=== PATIENT | male | born 1950 | race Caucasian/White ===

== ENCOUNTER 2019-01-30 13:11 | Outpatient (CLI) | payer MEDICARE ==
[~2019-01-30 13:11] MED LIST: ALBUTEROL NEB 2.5 MG/3 ML INH ONE
== END 2019-01-30 13:12 | disposition home or self-care (01) ==
LOC: RT 13:11
PROVIDERS: ATTEND Family Medicine
DX: R06.09 Other forms of dyspnea (principal)
CPT/HCPCS: 94060; 94727; 94729

== ENCOUNTER 2019-05-26 13:09 | Outpatient (CLI) | payer MEDICARE ==
--- NOTE | 2019-05-27 13:59 | XRAY Report ---
Reason: PAIN OF LEFT SHOULDER JOINT, BILATERAL Procedure Date: 05/26/2019 Accession Number: [id number] / [id number] Procedure: XRS - Shoulder 3 View BILAT CPT Code: Final Report FULL RESULT: EXAM: BILATERAL SHOULDER RADIOGRAPHY EXAM DATE: 05/26/2019 01:33 PM. CLINICAL HISTORY: Pain of bilateral shoulder joints. COMPARISON: None. TECHNIQUE: 3 views each shoulder. FINDINGS: Bones: Normal. No fracture or bone lesion. Joints: The glenohumeral and acromioclavicular joints are normally aligned. Mild bilateral acromioclavicular and glenohumeral degenerative changes with joint space loss and osteophytosis. Soft tissues: The visualized hemithorax is unremarkable. No soft tissue swelling. Benign-appearing soft tissue calcifications adjacent to the proximal left humerus. IMPRESSION: Mild bilateral degenerative changes in the shoulders. RADIA
== END 2019-05-26 13:10 | disposition home or self-care (01) ==
LOC: DI.S 13:09
PROVIDERS: ATTEND Family Medicine
DX: M19.012 Primary osteoarthritis, left shoulder (principal); M19.011 Primary osteoarthritis, right shoulder

== ENCOUNTER 2019-08-12 09:06 | Outpatient (CLI) | payer MEDICARE ==
--- NOTE | 2019-08-12 23:26 | Ultrasound Report ---
Reason: AAA Procedure Date: 08/12/2019 Accession Number: [id number] / [id number] Procedure: US - Retroperitoneal Limited CPT Code: Final Report FULL RESULT: EXAM: AORTIC DOPPLER ULTRASOUND EXAM DATE: 08/12/2019 10:58 AM. CLINICAL HISTORY: Evaluate abdominal aortic aneurysm. COMPARISON: None. TECHNIQUE: Real-time sonographic imaging of retroperitoneal vascular structures, including color-flow, Doppler flow and spectral analysis was performed by the offset printing pressmen. Multiple customer service representative teacher static images were saved for review. FINDINGS: Aorta: The abdominal aorta was adequately visualized. Fusiform distal abdominal aortic aneurysm measuring 3.3 x 3.7 cm in the transverse dimension. Aorta: Proximal: Sagittal AP 2.4 cm. Mid: Transverse 2.0 x 1.6 cm. Distal: Transverse 3.3 x .7 cm. Caliber: WNL: No. Plaque visualized: Yes. Iliacs: Right Iliac: Transverse 0.6 x 0.8 cm. Left Iliac: Transverse 0.5 x 0.8 cm. Iliac Vessels: Atherosclerotic plaquing involving the common iliac arteries bilaterally without definite aneurysmal dilatation. Other: None. IMPRESSION: 1. Fusiform distal abdominal aortic aneurysm measuring 3.3 x 3.7 cm in the transverse dimension. No sonographic evidence of rupture. 2. Atherosclerotic plaquing involving the common iliac arteries bilaterally without definite aneurysmal dilatation. RADIA
== END 2019-08-12 09:07 | disposition home or self-care (01) ==
LOC: DI 09:06
PROVIDERS: ATTEND Family Medicine
DX: I71.4 Abdominal aortic aneurysm, without rupture (principal)
CPT/HCPCS: 76775

== ENCOUNTER 2022-08-14 13:01 | Outpatient (CLI) | payer MEDICARE ==
--- NOTE | 2022-08-14 16:58 | XRAY Report ---
PROCEDURE: Lumbar Spine 2 View INDICATIONS: LOW BACK PAIN TECHNIQUE: 2 views of the lumbar spine were acquired. COMPARISON: Ultrasound retroperitoneum, 08/12/2019. FINDINGS: Bones: 5 [id number] vertebrae are present. There is trace retrolisthesis of L4 on L5. No vert ebral body compression fractures. No suspicious bony lesions. Mild degenerative disc disease throug hout the lumbar spine. Moderate facet arthropathy at L4-L5 and L5-S1. Soft tissues: Overlying bowel gas pattern is normal. There is aneurysm involving the anterior wall o f the still abdominal aorta. Severe atherosclerotic calcifications. Possible right inguinal calculi in the superior. IMPRESSION: 1. Mild degenerative joint disease and moderate facet arthropathy. 2. Aneurysm of the distal abdominal aorta. 3. Severe atherosclerotic calcifications. 4. Possible right renal calculi. Reviewed by: Chelo Malave MD on 08/14/2022 4:57 PM PST Approved by: Chelo Malave MD on 08/14/2022 4:57 PM PST Station ID: [id number]
--- NOTE | 2022-08-14 17:10 | XRAY Report ---
PROCEDURE: Thoracic Spine 2 View INDICATIONS: LOW BACK PAIN TECHNIQUE: 2 views of the thoracic spine were acquired. COMPARISON: None. FINDINGS: Bones: No fractures or dislocations. No suspicious bony lesions. Mild degenerative disc disease thr oughout the thoracic spine. 12 pairs of ribs are noted, and appear intact where visualized. Soft tissues: No paravertebral stripe thickening. IMPRESSION: Mild degenerative disc disease. Reviewed by: Chelo Malave MD on 08/14/2022 5:08 PM PST Approved by: Chelo Malave MD on 08/14/2022 5:08 PM PST Station ID: [id number]
== END 2022-08-14 13:02 | disposition home or self-care (01) ==
LOC: DI.S 13:01
PROVIDERS: ATTEND Nurse Practitioner Family
DX: M47.816 Spondylosis without myelopathy or radiculopathy, lumbar region (principal); M47.817 Spondylosis without myelopathy or radiculopathy, lumbosacral region; M51.36 Other intervertebral disc degeneration, lumbar region; M51.37 Other intervertebral disc degeneration, lumbosacral region; I71.40 Abdominal aortic aneurysm, without rupture, unspecified; N20.0 Calculus of kidney; I70.90 Unspecified atherosclerosis

== ENCOUNTER 2022-09-14 09:35 | Outpatient (CLI) | payer MEDICARE ==
--- NOTE | 2022-09-14 11:08 | Ultrasound Report ---
PROCEDURE: Retroperitoneal Limited INDICATIONS: Follow-up AAA TECHNIQUE: Real-time scanning was performed of the retroperitoneal organs, with image documentation. COMPARISON: 08/12/2019 FINDINGS:. Aorta: There is aneurysmal dilatation of the infrarenal abdominal aorta, measuring 3.8 x 3.9 cm. It p reviously measured 3.4 x 3.7 cm. Iliac arteries: Right common iliac artery measures 1.4 x 1.4 cm. Left common iliac artery measures 1. 0 x 1.1 cm. IVC: Intrahepatic inferior vena cava is patent. IMPRESSION: Mild to moderate aneurysmal dilatation of the infrarenal abdominal aorta, slightly increased since e previous study, with a maximum diameter 3.9 cm. Comment: Recommend follow-up ultrasound in 12 months. Reviewed by: Don Rosado MD on 09/14/2022 11:07 AM PST Approved by: Don Rosado MD on 09/14/2022 11:07 AM PST Station ID: [id number]
--- NOTE | 2022-09-14 14:19 | Ultrasound Report ---
PROCEDURE: Retroperitoneal INDICATIONS: KIDNEY STONE TECHNIQUE: Real-time scanning was performed of the retroperitoneal organs, with image documentation. COMPARISON: Ultrasound of the aorta from the same date FINDINGS: Kidneys: Kidneys are normal in size. Right kidney measures 9.3 cm long; left kidney measures 1.0 cm long. Right renal cortical thickness is 10.6 cm; left renal cortical thickness is 1.0 cm. No solid masses, hydronephrosis, or nephrolithiasis. Bladder: Pre-void bladder volume is 73.5 mL. Post-void residual is 9.1 mL. Pre-void images demonst rate no intraluminal masses or stones. On pre-void images, bilateral ureteral jets are noted with co tej Doppler interrogation. (Of note, ureteral jets may not be detectable in up to 25% of cases due t o insufficient differences in specific gravity between ureteral and bladder urine). Prostate measures 3.0 x 3.2 x 3.9 cm Miscellaneous: No free abdominal fluid. IMPRESSION: 1. Normal size kidneys with no evidence of hydronephrosis. 2. No renal stones are identified on today's ultrasound. However, ultrasound does not detect every st one present in the kidneys. Reviewed by: Don Rosado MD on 09/14/2022 2:18 PM PST Approved by: Don Rosado MD on 09/14/2022 2:18 PM PST Station ID: [id number]
== END 2022-09-14 09:36 | disposition home or self-care (01) ==
LOC: DI 09:35
PROVIDERS: ATTEND Nurse Practitioner Family
DX: N20.0 Calculus of kidney (principal); I71.40 Abdominal aortic aneurysm, without rupture, unspecified